=== PATIENT | male | born 1985 | race African-American/Black ===

== ENCOUNTER 2024-04-25 13:44 | Emergency (ER) | payer MEDICAID ==
[~2024-04-25] VITALS: Ht 188 cm; Wt 95.0 kg
[~2024-04-25 13:44] MED LIST: ALBU90AE INH; CEFP200T14 MT; REV20 MT
[2024-04-25 13:46] VITALS: O2SAT 98
[2024-04-25 14:40] LABS: BASOPHILS % 0.8 % (0.0-2.0); DIFFERENTIAL COMMENT 0; EOSINOPHILS % 0.5 % (0.0-5.0); HEMATOCRIT. 51.6 % (42.0-52.0); HEMOGLOBIN. 16.6 g/dL (14.0-18.0); LYMPHOCYTES % 37.2 % (20.0-50.0); MEAN CORPUSCULAR HEMOGLOBIN 33.5 pg (28.0-32.0); MEAN CORPUSCULAR HGB CONC 32.3 g/dL (31.0-37.0); MEAN CORPUSCULAR VOLUME 103.9 fL (80.0-94.0); MEAN PLATELET VOLUME 7.3 fl (7.4-10.4); MONOCYTES % 7.9 % (2.0-8.0); NEUTROPHILS % 53.6 % (40.0-76.0); PLATELET 220 x1000/uL (130-400); RED BLOOD CELL COUNT 4.96 mill/uL (4.7-6.1); RED CELL DISTRIBUTION WIDTH 15.4 % (11.6-14.6); WHITE BLOOD COUNT 4.5 x1000/uL (4.5-11.0)
[2024-04-25 14:50] LABS: CHLORIDE 108 mEq/L (98-107)
[2024-04-25 14:51] LABS: CARBON DIOXIDE 24 mEq/L (21-32); POTASSIUM 4.3 mEq/L (3.5-5.1); SODIUM 139 mEq/L (136-145)
[2024-04-25 14:52] LABS: CALCIUM 8.4 mg/dL (8.7-10.4)
[2024-04-25 14:56] LABS: CREATININE 1.2 mg/dL (0.6-1.3); GLUCOSE 93 mg/dL (70-105)
[2024-04-25] MEDS: SODIUM CHLORIDE 0.9% 1,000 ML IV ONE (14:56)
[2024-04-25] MEDS: IBUPROFEN 400MG TABLET PO ONE (14:56)
[2024-04-25] MEDS: LEVETIRACETAM 500MG PREMIX 100 ML IV ONE (14:56)
[2024-04-25 14:57] LABS: TROPONIN I HIGH SENSITIVITY 12 ng/L (3.0-53); UREA NITROGEN BLOOD 15 mg/dL (9-23)
[2024-04-25 14:58] LABS: ALANINE AMINOTRANSFERASE 31 IU/L (10-49); ALBUMIN 3.2 g/dL (3.2-4.8); ASPARTATE AMINOTRANSFERASE 48 IU/L (<34)
[2024-04-25 14:59] LABS: BILIRUBIN DIRECT 0.8 mg/dL (<=3.0); BILIRUBIN TOTAL 1.6 mg/dL (0.1-1.0); PROTEIN TOTAL 6.9 g/dL (6.0-8.3)
[2024-04-25 15:24] VITALS: BP 118/77; PULSE 70; RESP 18; TEMP 37.00296; O2SAT 98
[2024-04-25] MEDS ORDERED: KEPP500 MT (16:40)
== END 2024-04-25 17:31 | disposition home or self-care (01) ==
LOC: ER 13:56
DX: S80.212A Abrasion, left knee, initial encounter (principal); G40.909 Epilepsy, unspecified, not intractable, without status epilepticus; M25.522 Pain in left elbow; E11.22 Type 2 diabetes mellitus with diabetic chronic kidney disease; I50.9 Heart failure, unspecified; N18.9 Chronic kidney disease, unspecified; X58.XXXA Exposure to other specified factors, initial encounter; Y93.89 Activity, other specified; Y92.89 Other specified places as the place of occurrence of the external cause; Y99.8 Other external cause status
CPT/HCPCS: 80076; 80048; 85025; 84484; 36415; 71045; 73562; 70450; 93005; 96365; 99285; J1953; J7030; Z7610